=== PATIENT | female | born 1950 | race Caucasian/White ===

== ENCOUNTER → 2018-09-16 | Outpatient (CLI) | payer MEDICARE | LOC: M SLEEP 19:21 | DX: G47.33 Obstructive sleep apnea (adult) (pediatric) (principal); G47.61 Periodic limb movement disorder | CPT/HCPCS: 95810 ==

== ENCOUNTER → 2018-09-26 | Outpatient (CLI) | payer MEDICARE ==
[2018-09-26 12:57] LABS: ABG HCO3 25.8 MEQ/L (22.0-26.0); ABG O2 SATURATION 97.5 % (95.0-99.0); ABG PARTIAL PRESSURE CO2 41.7 mmHg (35.0-45.0); ABG PARTIAL PRESSURE O2 96.7 mmHg (75.0-100.0); ABG STANDARD HCO3 25.4 MEQ/L (22.0-26.0); ABG TOTAL CO2 27.1 MEQ/L (23.0-31.0); ABG pH (ARTERIAL) 7.409 UNITS (7.350-7.450)
== END ==
LOC: M CARPUL 12:19
DX: R06.00 Dyspnea, unspecified (principal)
CPT/HCPCS: 94060

== ENCOUNTER → 2018-10-03 | Outpatient (CLI) | payer MEDICARE | LOC: M SLEEP 19:36 | DX: G47.33 Obstructive sleep apnea (adult) (pediatric) (principal); G47.61 Periodic limb movement disorder | CPT/HCPCS: 95811 ==

== ENCOUNTER → 2019-06-23 | Outpatient (CLI) | payer MEDICARE ==
[~2019-06-23] MED LIST: ANOR1AER PO; ANUS25SU PR; ASPI81TA85 PO; CEPH500C PO; CYAN100050 PO; D 50CAP3 PO; FOLI1TAB11 PO; FURO20TA2 PO; LABE20TAB PO; LEVO150T7 PO; LOSA100T50 PO; MAGN400C2 PO; MULTCAP PO; PANT20TA2 PO; PARO1TAB33 PO; POTA20TA6 PO; RANI150T14 PO; ROSU10TA6 PO; SUCR1TAB56 PO; VENTAER INH
--- NOTE | 2019-06-23 14:44 | REP ---
REASON: Recurrent UTI. Transvesical and transvaginal imaging was obtained. Uterus measures 7 x 3.1 x 2.3 cm. The parenchymal echo pattern is heterogeneous. Within the uterus on the right there is a 1.3 x 0.9 x 1.3 cm size hypoechoic nodule. The endometrial echo complex measures 8 mm in thickness. This is upper limits of normal. In addition, the echo pattern of the ECC is heterogeneous. Right ovary measures 1.5 x 1 x 1.4 cm with an RI of 0.6. Left ovary measures 7.9 x 5.4 x 7 cm. Within the left ovary there is a 7.8 x 6.6 x 5.4 cm sized cystic mass with low level echoes, but without papillary projections of septations. Left ovarian RI is 0.62. Urinary bladder measures 7 x 5 x 4 cm. IMPRESSION: 1. Uterine myomatous changes as described above. 2. Heterogeneous ECC upper limits of normal for thickness. Clinical correlation is necessary. 3. Large cystic mass left adnexa as described above. Although there are no papillary projections or thick internal septations neoplastic change cannot be ruled out. Correlate clinically with close followup to ensure resolution. Obtain pelvic MRI with intravenous gadolinium if clinically relevant. Electronically Signed by Tyson Dupree DO 06/23/2019 02:47 P
--- NOTE | 2019-06-23 15:05 | REP ---
REASON FOR EXAM: Iron deficiency. There are no priors for comparison. Patient is status post cholecystectomy. Multiple ultrasonographic images of the liver show the hepatic parenchymal echo pattern to be within normal limits. There are no masses or ductal dilatation. The common bile duct measures between 5 and 6 mm. The pancreas was seen in the limited view. It appeared unremarkable. The maximal splenic dimension is 10.2 cm with a volumetric index calculation of 314 mL. This is within normal limits. There is no splenic or perisplenic abnormality. Right kidney measures 11.4 x 4.7 x 4.7 cm and is within normal limits. Left kidney measures 11.6 x 5.2 x 5.9 cm and is within normal limits. There is no evidence of an aortic or inferior vena cava abnormality. There is no free fluid in the abdomen. IMPRESSION: Status post cholecystectomy. The examination is otherwise unremarkable. Electronically Signed by Tyson Dupree DO 06/23/2019 03:15 P
== END ==
LOC: M RAD 08:57
PROVIDERS: ATTEND Internal Medicine Hematology & Oncology
DX: D50.9 Iron deficiency anemia, unspecified (principal); Z87.440 Personal history of urinary (tract) infections; R10.2 Pelvic and perineal pain; D25.9 Leiomyoma of uterus, unspecified; N83.8 Other noninflammatory disorders of ovary, fallopian tube and broad ligament

== ENCOUNTER 2022-01-20 12:52 | Day surgery (SDC) | payer MEDICARE ==
[~2022-01-20] VITALS: Ht 157.5 cm; Wt 75.8 kg
[~2022-01-20 12:52] MED LIST changes: +AMLO1TAB24 PO; +ASPI81CH33 PO; -ASPI81TA85 PO; +ASPI81TA86 PO; +CARA1TAB6 PO; +CEPH250T PO; +ESTR1TAB PO; +FURO40TA2; +IRON65TA2 PO; +LOSA100T45 PO; -LOSA100T50 PO; +MAGN500C2 PO; +MULT-90 PO; -PANT20TA2 PO; +PANT20TA6 PO; +POTA-151 PO; -POTA20TA6 PO; +RANO500T7 PO; +VALS160T3 PO; +VITA100093 PO
[2022-01-20] MEDS ORDERED: ceFAZolin SOD 2 GM in IV 1 EA IV ONE (13:25)
[2022-01-20] MEDS ORDERED: ISOVUE-300 61% 50ML VIAL As Ordered ONE (13:46)
[2022-01-20] MEDS ORDERED: LIDOCAINE 1% SDV 30ML VIAL As Ordered ONE (13:46)
[2022-01-20] MEDS ORDERED: LR 1,000 ML IV SCH ×2 (14:50→17:40)
[2022-01-20] MEDS ORDERED: MIDAZOLAM INJ 2MG/2ML VIAL (J2250 PER 1MG) As Ordered ONE (16:11)
[2022-01-20] MEDS ORDERED: LIDOCAINE 2% 100MG/5ML SDV (FOR ANES.) As Ordered ONE (16:11)
[2022-01-20] MEDS ORDERED: propofoL 200 MG/20 ML VIAL As Ordered ONE (16:11)
[2022-01-20] MEDS ORDERED: ACETAMINOPHEN 1000MG 100ML IV BTL (OFIRMEV) (J0131 PER 10MG) As Ordered ONE (16:11)
[2022-01-20] MEDS ORDERED: fentaNYL 100 MCG/2 ML INJECTION As Ordered ONE (16:11)
[2022-01-20] MEDS ORDERED: ONDANSETRON 4MG/2ML VIAL As Ordered ONE (16:19)
[2022-01-20] MEDS ORDERED: IPRATROPIUM 0.5MG/ALBUTEROL 2.5MG INH SOL UD 3ML (DUONEB) NEB PRN (17:30)
[2022-01-20] MEDS ORDERED: traMADol 50 MG TAB PO PRN (17:30)
[2022-01-20] MEDS ORDERED: oxyCODONE 5MG TAB PO PRN (17:40)
[2022-01-20] MEDS ORDERED: fentaNYL 100 MCG/2 ML INJECTION IV PRN (17:40)
[2022-01-20] MEDS ORDERED: MEPERIDINE INJ 25 MG/ML VIAL (J2175) IV PRN (17:40)
[2022-01-20] MEDS ORDERED: ONDANSETRON 4MG/2ML VIAL IV PRN (17:40)
[2022-01-20 18:15] VITALS: BP 131/61
[2022-01-20 18:58] VITALS: BP 115/54
[2022-01-20] MEDS: IPRATROPIUM 0.5MG/ALBUTEROL 2.5MG INH SOL UD 3ML (DUONEB) NEB SCH (19:16)
[2022-01-20 20:05] VITALS: BP 118/56
[2022-01-20] MEDS ORDERED: ROSUVASTATIN 10 MG TAB (CRESTOR) PO SCH (21:00)
[2022-01-20] MEDS ORDERED: VALSARTAN 80 MG TAB (DIOVAN) PO SCH (21:00)
[2022-01-20] MEDS: SUCRALFATE 1 GM TAB PO SCH (21:05)
[2022-01-21 00:05] VITALS: BP 130/62
[2022-01-21] MEDS: IPRATROPIUM 0.5MG/ALBUTEROL 2.5MG INH SOL UD 3ML (DUONEB) NEB SCH ×3 (01:58→13:15)
[2022-01-21] MEDS: ACETAMINOPHEN 500 MG TAB PO PRN ×2 (02:10→08:07)
[2022-01-21] MEDS: ceFAZolin SOD 1 GM in D5W MINI-BAG PLUS 50 ML IV SCH ×3 (02:10→17:06)
[2022-01-21 04:10] VITALS: BP 118/56
[2022-01-21] MEDS ORDERED: LEVOTHYROXINE 150MCG TABLET (0.15MG) PO SCH (06:00)
[2022-01-21 08:00] VITALS: BP 140/63
[2022-01-21] MEDS ORDERED: amLODIPine 5 MG TAB PO SCH (09:00)
[2022-01-21] MEDS ORDERED: ASPIRIN 81MG ENTERIC TABLET PO SCH (09:00)
[2022-01-21] MEDS ORDERED: PARoxetine 20MG TABLET PO SCH (09:00)
[2022-01-21] MEDS ORDERED: OMEPRAZOLE 20MG CAP PO SCH (09:00)
[2022-01-21] MEDS: SUCRALFATE 1 GM TAB PO SCH (09:52)
[2022-01-21 09:54] VITALS: BP 137/65
[2022-01-21 12:00] VITALS: BP 148/70
[2022-01-21 16:20] VITALS: BP 131/65
== END 2022-01-21 18:24 | disposition home or self-care (01) ==
LOC: M SDC 12:52 → M PCU 18:17 → M SDC 01-21 18:24
PROVIDERS: ATTEND Internal Medicine Cardiovascular Disease
DX: I49.5 Sick sinus syndrome (principal); I45.5 Other specified heart block; I11.0 Hypertensive heart disease with heart failure; I44.0 Atrioventricular block, first degree; I25.10 Atherosclerotic heart disease of native coronary artery without angina pectoris; I50.30 Unspecified diastolic (congestive) heart failure; I25.2 Old myocardial infarction; Z95.1 Presence of aortocoronary bypass graft; E78.5 Hyperlipidemia, unspecified; J44.9 Chronic obstructive pulmonary disease, unspecified; E07.9 Disorder of thyroid, unspecified; D64.9 Anemia, unspecified; K21.9 Gastro-esophageal reflux disease without esophagitis; E66.9 Obesity, unspecified; Z79.899 Other long term (current) drug therapy; Z79.82 Long term (current) use of aspirin
CPT/HCPCS: 33208; 71045; 71046; 76000; 93005; 94640; 96365; 96366; 96376; C1785; C1898; J0131; J0690; J2250; J2405; J3010

== ENCOUNTER 2024-04-26 11:05 | Emergency (ER) | payer MEDICARE ==
[~2024-04-26] VITALS: Ht 157.5 cm; Wt 99.9 kg
[~2024-04-26 11:05] MED LIST changes: +CARD180C4 PO; +CYAN-1 PO; -CYAN100050 PO; +DILT180C78 PO; +ELIQ5TAB; +HYDR25TA87; -LOSA100T45 PO; +LOSA100T46 PO; +NITR0.4S14; +POTA10808 PO; +RANO500T2 PO; -ROSU10TA6 PO; +ROSU10TA61 PO; +ROSU20TA61 PO; +STIO1AER; +VITA500C24 PO
[2024-04-26 11:09] VITALS: BP 200/94; TEMP 97.4; O2SAT 95
== END 2024-04-26 11:55 | disposition left against medical advice (07) ==
LOC: M ED 11:05
DX: Z53.21 Procedure and treatment not carried out due to patient leaving prior to being seen by health care provider (principal)

== ENCOUNTER → 2025-10-06 | Outpatient (REF) | payer MEDICARE ==
[~2025-10-06] MED LIST changes: +POTA10807 PO; -POTA10808 PO; -ROSU10TA61 PO; +ROSU10TA90 PO; -ROSU20TA61 PO; +ROSU20TA86 PO
[2025-10-06 18:32] LABS: MALB URINE SIEMENS 188.0 MG/L
[2025-10-06 18:46] LABS: CREATININE, URINE 420.7 MG/DL; MAU/CREAT RATIO 44.6 MCG/MG (0.0-30.0)
== END ==
LOC: M LAB REF 16:51
PROVIDERS: ATTEND Student in an Organized Health Care Education/Training Program
DX: I12.9 Hypertensive chronic kidney disease with stage 1 through stage 4 chronic kidney disease, or unspecified chronic kidney disease (principal); N18.9 Chronic kidney disease, unspecified